=== PATIENT | male | born 1955 | race Caucasian/White ===

== ENCOUNTER 2022-09-27 11:58 | Observation (INO) | payer MEDICARE, MEDICAID, SELFPAY ==
[2022-09-27] VITALS (34 sets, daily range): BP systolic 138–182; BP diastolic 80–108; PULSE 91–110; RESP 13–18; TEMP 36.5–36.7; O2SAT 77–100; BMI 24.4
--- NOTE | 2022-09-27 13:19 | ECG_ITS ---
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 Measurements Intervals [place] Rate: 105 P: 56 MI: 167 QRS: 40 QRSD: 96 T: 58 QT: 336 QTc: 445 Interpretive Statements SINUS TACHYCARDIA ABNORMAL RHYTHM ECG INTERPRETATION BASED ON A DEFAULT AGE OF 40 YEARS No previous ECG available for comparison Electronically Signed On 09-27-2022 16:17:02 TOY ASSEMBLER WOOD by Basil Victor M.D. [id number]
[2022-09-27 13:27] LABS: Add Urine Microscopic? NO; Charge for UA Resulting for Rev
[2022-09-27 13:38] LABS: Urine Appearance Clear (CLEAR); Urine Color Yellow (Yellow)
[2022-09-27 13:39] LABS: Bilirubin Urine Neg (Negative); Blood Urine Neg (Negative); Glucose Urine UA Norm (Normal); Ketones Urine Negative (Negative); Leukocyte Esterase Urine Negative (Negative); Nitrate Urine Negative (Negative); Protein Urine Neg (Negative); Specific Gravity, Urine 1.015 (1.005-1.030); Sulfosalicylic Acid Urine Negative (Negative); Urobilinogen Urine Neg (Negative); pH Urine 8 (5-7)
[2022-09-27 14:31] LABS: Basophils % 0.5 %; Eosinophils # 0.1 10^3/uL (0.0-0.8); Eosinophils % 1.6 %; Hematocrit 40.5 % (42.0-52.0); Hemoglobin 12.8 g/dL (11.7-16.6); Lymphocytes # 1.3 10^3/uL (0.8-4.8); Lymphocytes % 16.1 %; Mean Corpuscular HGB Conc 31.6 g/dL (30.0-36.0); Mean Corpuscular Hemoglobin 27.2 pg (28.0-34.0); Mean Corpuscular Volume 86.2 fl (80-94); Mean Platelet Volume 9.5 fL (7.4-10.4); Monocytes # 0.6 10^3/uL (0.2-0.9); Monocytes % 6.6 %; Neutrophils # 6.18 10^3/uL (1.8-7.7); Neutrophils % 74.1 %; Nucleated Red Blood Cells % 0 %; Platelet Count 503 10^3/cmm (130-400); White Blood Count 8.3 10^3/uL (4.0-10.0)
[2022-09-27 14:53] LABS: Troponin(5th) Baseline 11 ng/L (0-15)
[2022-09-27 15:03] LABS: Alanine Aminotransferase 15 U/L (0-41); Albumin Level 3.5 g/dL (3.5-5.2); Alkaline Phosphatase 114 U/L (40-130); Anion Gap 16.1 (5-19); Aspartate Amino Transferase 18 U/L (0-40); Blood Urea Nitrogen 14 mg/dL (8-23); Calcium 10.1 mg/dL (8.5-10.5); Carbon Dioxide 27 mmol/L (22-29); Chloride 98 mmol/L (98-107); Globulin 4.3 g/dL (1.3-4.6); Glomerular Filtration Rate 112.5 mL/min (90-130); Glucose 103 mg/dL (65-115); NT Pro B Type Natriuretic Pept 69 pg/mL (0-125); Osmolality Calculated 285 mOsm/kg (285-295); Potassium 4.1 mmol/L (3.5-5.1); Sodium 137 mmol/L (136-145); Total Bilirubin 0.3 mg/dL (0.15-1.2); Total Protein 7.8 g/dL (6.6-8.7)
--- NOTE | 2022-09-27 15:19 | ECG_ITS ---
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 Measurements Intervals [place] Rate: 93 P: 45 TX: 176 QRS: 36 QRSD: 109 T: 21 QT: 357 QTc: 444 Interpretive Statements SINUS RHYTHM POSSIBLE INFERIOR MYOCARDIAL INFARCTION , PROBABLY OLD [30 ms Q WAVE IN II/aVF] Compared to ECG 09/27/2022 13:08:52 Myocardial infarct finding now present Sinus tachycardia no longer present Electronically Signed On 09-28-2022 10:17:21 HEAD WELL PULLER by Alberto Bacon M.D. [id number]
--- NOTE | 2022-09-27 16:57 | W.ED.CHESTPA ---
HPI - Chest Pain General: Chief Complaint: Chest Pain Stated Complaint: Swollen both legs Time Seen by Provider: 09/27/22 16:33 Source: patient Mode of arrival: EMS Limitations: no limitations History of Present Illness: See nursing assessment. Patient with complaints of increased peripheral edema in bilateral lower extremities for the past week and a half. Patient states that he has had increasing edema bilateral lower extremities to the point now that he cannot walk. He states he was seen in [facility] twice over the past week and a half. He states last visit was approximately 5 days ago and he was placed on Lasix 20 mg daily. He states he is taking Lasix 20 mg daily for the past 5 days. He states on the last visit he did have bilateral venous Dopplers of both lower extremities that were negative according to the patient. Patient states he is on no other medications except for the furosemide. He has not had any steroids. He states he was taken off written Christal for rheumatoid arthritis about 3 months ago due to cost. Past medical history includes rheumatoid arthritis, patient states he has arthritic changes right hip that will require right hip replacement sometime. He states he has been on crutches for approximately 1 year due to right hip pain. States he has had bilateral knee effusions with left effusion being drained approximately 1 month ago by his primary care doctor. He states the right knee was drained approximately 2 months ago. Patient states he does smoke cigarettes. He drinks 6 pack of beer per day. Denies any allergies to medications. Denies any fever. Denies any erythema or increased warmth to the lower extremities. Denies a history of gout. Patient denies any shortness of breath or chest pain. Associated symptoms: Deny abdominal pain, dyspnea, fever(s), nausea, palpitations or vomiting Review of Systems Const: Denies: fever(s) or chills Eyes: Denies: change in vision ENMT: Denies: throat pain Card: Denies: chest pain or palpitations Resp: Denies: dyspnea or wheezing GI: Denies: abdominal pain, nausea or vomiting : Denies: flank pain Musc: Reports: extremity swelling, joint pain and joint swelling; Denies: neck pain, back pain, joint warmth or muscle weakness Skin/Breast: Denies: rash or pruritus Neuro: Denies: headache(s) or numbness in extremities Psych: Denies: anxiety Clay/Lymph: Denies: enlarged lymph nodes [facility] ED PFSH: Medical History (Updated 09/27/22 @ 18:00 by Dillon Wood MD) RA (rheumatoid arthritis) Physical Exam Const: COMMON NORMALS: no acute distress, patient oriented x3, no limitations and well nourished GENERAL APPEARANCE: cooperative HENMT: COMMON NORMALS: normocephalic and atraumatic HEAD & SCALP: normocephalic and atraumatic FACE & SINUS: normal facial exam Eye: COMMON NORMALS: EOMs intact bilaterally Neck/C-Spine: COMMON NORMALS: full ROM, no lymphadenopathy, supple and no meningeal signs GENERAL: Yes normal visual inspection Lymph: LYMPHATIC: no lymphadenopathy noted Chest: COMMONS NORMALS: normal inspection of the chest and normal palpation of entire chest wall CHEST: No Ecchymosis present and No rash Resp: COMMON NORMALS: normal respiratory effort, No retractions and clear to auscultation bilaterally EFFORT & INSPECTION: No respiratory distress AUSCULTATION: clear to auscultation bilaterally Cardio: COMMON NORMALS: regular rate, regular rhythm and Peripheral pulses 2+ throughout JUGULAR VENOUS DISTENTION: no JVD RATE: regular rate RHYTHM: regular rhythm PERIPHERAL PULSES: Peripheral pulses 2+ throughout GI: COMMON NORMALS: Normal to inspection, nondistended, normoactive bowel sounds present and non-tender : COMMON NORMALS: Yes no CVA tenderness BLADDER/KIDNEY EXAM: Yes no CVA tenderness Back/Pelvis: COMMON NORMALS: no CVA tenderness Extremity: OTHER: Bilateral lower extremity peripheral edema 3+. Peripheral pulses are normal in the dorsalis pedis and posterior tibial pulses bilaterally. Peripheral edema extends above the knees bilaterally. No cellulitis. Capillary refill 2 to 3 seconds. Neuro: COMMON NORMALS: patient oriented x3, CN's II-XII intact bilaterally, no focal motor deficits and no sensory deficits noted MENINGEAL SIGNS: Yes no meningeal signs Psych: COMMON NORMALS: mental status grossly normal and Normal thought process present THOUGHT PROCESS: Normal thought process present Skin: COMMON NORMALS: no rashes or lesions noted and no wounds GENERAL SKIN EXAM: no rashes or lesions noted Course Vital Signs: Vital signs: Vital Signs Temperature 98.0 F 09/27/22 14:23 Pulse Rate 103 H 09/27/22 18:00 Respiratory Rate 13 09/27/22 17:15 Blood Pressure 179/105 09/27/22 18:00 Pulse Oximetry 95 09/27/22 17:55 Oxygen Delivery Me thod 09/27/22 14:23 MDM - Chest Pain Medical Decision Making Patient appears to have dependent peripheral edema bilaterally. Albumin level is on the low end of normal. This is likely lower due to his chronic alcohol use. Patient has had low-dose furosemide daily for the past 5 days. However, patient is at the point where he is unable to ambulate due to the peripheral edema severity. Will consult with hospitalist for possible observation. Discussed with hospitalist Dr. Wood. He agreed to observe the patient in the hospital due to the patient's inability to ambulate. Patient lives alone. We will start diuresis in the emergency room. 1838: still awaiting faxed material from [facility] in [place]. Request has been sent. Lab Data 09/27/22 14:24 09/27/22 14:24 Laboratory Results WBC 8.3 10^3/uL (4.0-10.0) 09/27/22 14:24 RBC 4.70 10^6/uL (4.1-5.3) 09/27/22 14:24 Hgb 12.8 g/dL (11.7-16.6) 09/27/22 14:24 Hct 40.5 % (42.0-52.0) L 09/27/22 14:24 MCV 86.2 fl (80-94) 09/27/22 14:24 MCH 27.2 pg (28.0-34.0) L 09/27/22 14:24 MCHC 31.6 g/dL (30.0-36.0) 09/27/22 14:24 RDW 16.0 % (12.1-15.1) H 09/27/22 14:24 Plt Count 503 10^3/cmm (130-400) H 09/27/22 14:24 MPV 9.5 fL (7.4-10.4) 09/27/22 14:24 Neut % (Auto) 74.1 % 09/27/22 14:24 Lymph % (Auto) 16.1 % 09/27/22 14:24 [place] % (Auto) 6.6 % 09/27/22 14:24 Eos % (Auto) 1.6 % 09/27/22 14:24 Baso % (Auto) 0.5 % 09/27/22 14:24 Neut # (Auto) 6.18 10^3/uL (1.8-7.7) 09/27/22 14:24 Lymph # (Auto) 1.3 10^3/uL (0.8-4.8) 09/27/22 14:24 [place] # (Auto) 0.6 10^3/uL (0.2-0.9) 09/27/22 14:24 Eos # (Auto) 0.1 10^3/uL (0.0-0.8) 09/27/22 14:24 Baso # (Auto) 0.0 10^3/uL (0.0-0.1) 09/27/22 14:24 Nucleated RBC % (auto) 0 % 09/27/22 14:24 Nucleated RBCs # 0.0 /100WBC 09/27/22 14:24 Sodium 137 mmol/L (136-145) 09/27/22 14:24 Potassium 4.1 mmol/L (3.5-5.1) 09/27/22 14:24 Chloride 98 mmol/L (98-107) 09/27/22 14:24 Carbon Dioxide 27 mmol/L (22-29) 09/27/22 14:24 Anion Gap 16.1 (5-19) 09/27/22 14:24 BUN 14 mg/dL (8-23) 09/27/22 14:24 Creatinine 0.7 mg/dL (0.7-1.2) 09/27/22 14:24 GFR Calculation 112.5 mL/min (90-130) 09/27/22 14:24 Glucose 103 mg/dL (65-115) 09/27/22 14:24 Calculated Osmolality 285 mOsm/kg (285-295) 09/27/22 14:24 Calcium 10.1 mg/dL (8.5-10.5) 09/27/22 14:24 Total Bilirubin 0.3 mg/dL (0.15-1.2) 09/27/22 14:24 AST 18 U/L (0-40) 09/27/22 14:24 ALT 15 U/L (0-41) 09/27/22 14:24 Alkaline Phosphatase 114 U/L (40-130) 09/27/22 14:24 Troponin T Baseline 11 ng/L (0-15) 09/27/22 14:24 Troponin T 120 Minute 11.33 ng/L (0-15) 09/27/22 16:28 Delta Troponin T 0.33 ABS# (0-10) 09/27/22 16:28 NT-Pro-B Natriuret Pep 69 pg/mL (0-125) 09/27/22 14:24 Total Protein 7.8 g/dL (6.6-8.7) 09/27/22 14:24 Albumin 3.5 g/dL (3.5-5.2) 09/27/22 14:24 Globulin 4.3 g/dL (1.3-4.6) 09/27/22 14:24 Urine Color Yellow (Yellow) 09/27/22 13:20 Urine Appearance Clear (CLEAR) 09/27/22 13:20 Urine pH 8 (5-7) H 09/27/22 13:20 Ur Specific [place] 1.015 (1.005-1.030) 09/27/22 13:20 Urine Protein Neg (Negative) 09/27/22 13:20 Urine Glucose (UA) Norm (Normal) 09/27/22 13:20 Urine Ketones Negative (Negative) 09/27/22 13:20 Urine Blood Neg (Negative) 09/27/22 13:20 Urine Nitrate Negative (Negative) 09/27/22 13:20 Urine Bilirubin Neg (Negative) 09/27/22 13:20 Prot Sulfosalicylic Acd Negative (Negative) 09/27/22 13:20 Urine Urobilinogen Neg mg/dL (Negative) 09/27/22 13:20 Ur Leukocyte Esterase Negative (Negative) 09/27/22 13:20 EKG Data EKG 1: I personally reviewed and interpreted this EKG as follows: EKG interpretation date: 09/27/22 EKG interpretation time: 16:39 Prior EKG tracings: not available for review Interpretation: EKG at 1308 showed sinus tachycardia with heart rate of 105, mild right atrial disease, normal axis. Normal AL interval, normal QT interval. Normal P waves, normal T waves. EKG 2: I personally reviewed and interpreted this EKG as follows: EKG interpretation date: 09/27/22 EKG interpretation time: 16:42 Prior EKG tracings: available for review Interpretation: EKG shows normal sinus rhythm with heart rate 93. Normal AL interval, normal QT interval, normal P wave, normal T waves. Normal axis. Normal EKG. Discharge Plan Discharge Patient Disposition: Placed in Observation Admit Provider: Dillon Wood Clinical Impression: Edema, peripheral Coding Level of Care Code ED Process Automation Engineer for Chg Fwd History Comprehensive Exam Comprehensive Medical Decision Making Moderate Complexity
[2022-09-27 17:02] LABS: Troponin 5 2HR 11.33 ng/L (0-15)
[2022-09-27] MEDS: FUROsemide 10 mg/mL SDV 4mL 40 MG IVP (17:26)
[2022-09-27 17:39] LABS: Troponin 5 2HR Delta 0.33 ABS# (0-10)
--- NOTE | 2022-09-27 18:47 | USR_ITS ---
PROCEDURE INFORMATION: Exam: US Duplex Lower Extremity Veins, Bilateral Exam date and time: 09/27/2022 7:44 PM Age: 66 years old Clinical indication: Edema, localized; Lower extremity, bilateral; Patient HX: History of chronic ble edema since lle dvt 2006. ; Additional info: Assess for dvt TECHNIQUE: Imaging protocol: Real-time Duplex ultrasound of the bilateral extremities with 2-D nelson scale, color Doppler flow and spectral waveform analysis with image documentation. Complete exam focused on the bilateral lower extremity veins. COMPARISON: No relevant prior studies available. FINDINGS: Right deep veins: Unremarkable. The common femoral, femoral, proximal profunda femoral and popliteal veins are patent without thrombus. Normal Doppler waveforms. Normal compressibility and/or augmentation response. Right superficial veins: Saphenofemoral junction is patent without thrombus. Left deep veins: Unremarkable. The common femoral, femoral, proximal profunda femoral and popliteal veins are patent without thrombus. Normal Doppler waveforms. Normal compressibility and/or augmentation response. Left superficial veins: Saphenofemoral junction is patent without thrombus. Soft tissues: Unremarkable. US/CV venous duplex [facility] [id number] IMPRESSION: No evidence of deep vein thrombosis.
--- NOTE | 2022-09-27 18:47 | USCV_ITS ---
Tatum Celestine Age: 66 Gender: M : 1955 Exam Date: 09/27/2022 19:15 Ordering Phys: Dillon Wood MD Technologist: JAXON Exam Location: [facility] [place] Indication: chronic BLE edema. History of DVT LLE 2006. No history of cardiac intervention per patient. BP: 179 / 94 HR: 92 Rhythm: Sinus Technical Quality: Adequate MEASUREMENTS (Male / Female) Normal Values 2D ECHO LV Diastolic Diameter PLAX 4.3 cm 4.2 - 5.9 / 3.9 - 5.3 cm LV Systolic Diameter PLAX 3.1 cm IVS Diastolic Thickness 1.6 cm 0.6 - 1.0 / 0.6 - 0.9 cm IVS Systolic Thickness 1.8 cm LVPW Diastolic Thickness 1.5 cm 0.6 - 1.0 / 0.6 - 0.9 cm LVPW Systolic Thickness 1.7 cm LVOT Diameter 2.1 cm LV Ejection Fraction 2D Teich 56.7 % LV Ejection Fraction MOD 2C 58.0 % LV Ejection Fraction 2C AL 58.5 % LA Diameter 4.2 cm LA Width 4.4 cm LA Height 5.6 cm RA Width 2.9 cm RA Height 4.6 cm Aorta at Sinotubular Diameter 3.6 cm IVC Diameter 2.0 cm M-MODE Aortic Annulus Diameter 3.6 cm LA Ao Ratio MM 1.1 MV E Point Septal Separation 0.9 cm DOPPLER AV Peak Velocity 143.0 cm/s LVOT Peak Velocity 86.0 cm/s AV Area Cont Eq vti 1.8 cm squared AV Area Cont Eq pk 2.1 cm squared MV Peak Velocity 150.0 cm/s MV Area PHT 2.9 cm squared Mitral E to A Ratio 0.6 MV E' Velocity 43.0 cm/s Mitral E to MV E' Ratio 17.0 Mitral E to LV E' Lateral Ratio 16.3 Mitral E to LV E' Septal Ratio 18.1 TV Peak E Velocity 49.0 cm/s PV Peak Velocity 88.0 cm/s RV Acceleration Time 0.1 s RV Ejection Time 0.3 s RV AcT/ET 0.2 FINDINGS Left Ventricle Left ventricle is normal in size. LV systolic function is normal with EF of 55 to 60%. No regional wall motion abnormalities are seen. Grade 1 diastolic dysfunction Right Ventricle Normal in size and function Right Atrium Normal in size Left Atrium Normal in size Mitral Valve Moderate mitral annular calcification is seen. Trace mitral regurgitation Aortic Valve Aortic valve is thickened. Mild aortic regurgitation.No significant stenosis. Tricuspid Valve Mild tricuspid regurgitation. Insufficient TR jet to calculate RVSP Pulmonic Valve Trace pulmonic regurgitation. Pericardium Normal Aorta Normal in size IVC Not well visualized CONCLUSIONS LV systolic function is normal with EF 55 to 60%. Grade 1 diastolic dysfunction Moderate mitral annular calcification is seen. Mild aortic regurgitation Mild tricuspid regurgitation Trace pulmonic regurgitation No comparison studies are available Alberto Bacon MD (Electronically Signed) Final Date: 28 September 2022 10:47 S
--- NOTE | 2022-09-27 18:47 | PC.NURSE ---
report callec to tia bales
[2022-09-27] MEDS: ondansetron 2 mg/ML SDV 2 mL 4 MG IVP (18:54)
[2022-09-27] MEDS: acetaminophen 325 mg Tablet 650 MG PO (18:54)
[2022-09-27] MEDS: HYDROcodone-acetaminophen 5-325 mg Tablet 1 TAB PO (18:54)
--- NOTE | 2022-09-27 19:06 | P.HP_ITS ---
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 He states that he will actually get upset and did not return for any additional treatments. In the past he was also on Rinvoq which she states was discontinued after his insurance declined payment for it. He has not been on any additional treatments. A month ago states that fluid was withdrawn from his left knee by orthopedic nurse practitioner. He states that over the last several months his condition has declined in terms of mobility. Previously used to be able to get around sometimes using crutches. He tells me he has a very bad hip on the right side and that he had previously seen someone with consideration of hip replacement at 1 point [facility] still anticipates that he will get hip replacement. 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 Over the last week and a half his condition had continued to decline, and he states has also been having progressively worse bilateral lower extremity edema. This reportedly had been previously imaged not found to have DVT. He states that currently he is to the point that he is unable to get up by himself. He is to also get some assistance from a nephew who was coming to his house, however, his nephew recently had some health issues and the surgical procedure and currently needs help himself. He states otherwise he also gets easily dyspneic with exertion which is not new. He is not sure whether he gets orthopnea as he is unable to lie down due to pain in his back. He denies any chest pain or pressure. He has not been having any cough. He is not short of breath at rest. In ER he is afebrile, heart rate in the 90s. No leukocytosis. Mildly elevated platelet counts and RDW, otherwise unremarkable CBC. Unremarkable CMP and urinalysis. Troponin not elevated. NT proBNP 69. Unremarkable EKG although noted Q waves inferiorly. He is accompanied in ER by his niece. In terms of CODE STATUS, he would be okay for intubation in case of isolated respiratory failure or arrest on transient basis, but in case of cardiopulmonary arrest he would rather be kept comfortable and let go if it did happen. Review of Systems Const: Denies: fever(s), chills, body aches or malaise Eyes: Denies: change in vision, eye discomfort or eye redness ENMT: Denies: throat pain, oral sores or ear or mastoid pain Card: Reports: edema, swelling of feet/ankles and dyspnea on exertion; Denies: chest pain or pre-syncope Resp: Denies: dyspnea, productive cough, change in phlegm color or hemoptysis GI: Denies: abdominal pain, nausea, vomiting, diarrhea, constipation, h ematochezia or melena : Denies: flank pain, difficulty urinating, urinary frequency or hematuria Musc: Reports: extremity swelling (BL LE), joint swelling (Multiple joins with RA), joint stiffness, limited range of motion and deformity (hands, knees, feet); Denies: joint redness Skin/Breast: Denies: rash or new lesions Neuro: Denies: headache(s), numbness in extremities, dizziness, confusion or seizure-like activity Endo: Denies: polyuria or polydipsia Clay/Lymph: Denies: easy bleeding or tender lymph nodes All/Imm: Denies: urticaria or tongue swelling Medications/Allergies Home Medications Medication Instructions Recorded Confirmed Last Taken Type furosemide 20 mg tablet 20 mg PO DAILY 09/27/22 09/27/22 09/26/22 History Allergies Allergy/AdvReac Type Severity Reaction Status Date / Time No Known Allergies Allergy Verified 09/27/22 16:37 PFSH Acute PFSH: Medical History CVA (cerebral vascular accident) Excessive consumption of ethanol RA (rheumatoid arthritis) Smoking Surgical History No pertinent past surgical history Social History Smoking and tobacco status: current every day smoker Alcohol intake: current Alcohol intake frequency: 3 or more drinks per day Alcohol type: beer Alcohol use comment: 6-pack a day Substance/Drug Use: never Lives independently: Yes Household members: none 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 Vitals/I&O/Wt Last Vital Signs Temp 98.0 F 09/27/22 14:23 Pulse 98 09/27/22 18:45 Resp 13 09/27/22 17:15 BP 179/94 09/27/22 18:45 Pulse Ox 97 09/27/22 18:45 O2 Del Method 09/27/22 14:23 Weight last 48 hrs Weight 81.647 kg Physical Exam Narrative: Niece at bedside Const: COMMON NORMALS: patient oriented x3 and alert GENERAL APPEARANCE: cooperative ORIENTATION/CONSCIOUSNESS: Yes awake HENMT: COMMON NORMALS: oropharynx normal Neck/C-Spine: COMMON NORMALS: no JVD Resp: COMMON NORMALS: normal respiratory effort and clear to auscultation bilaterally AUSCULTATION: clear to auscultation bilaterally Cardio: COMMON NORMALS: no JVD, regular rhythm, S1 normal heart sound present, S2 normal heart sound present and No murmurs present (Cardio) RHYTHM: regular rhythm HEART SOUNDS: S1 normal heart sound present and S2 normal heart sound present GI: COMMON NORMALS: Normal to inspection, nondistended, normoactive bowel sounds present, Soft to palpation and non-tender PALPATION: Yes Soft to palpation Extremity: COMMON NORMALS: no joint enlargement GENERAL: Yes edema (BL legs 3+ edema up to thighs) OTHER: Multiple joint bilateral RA deformities Neuro: COMMON NORMALS: patient oriented x3 and moves all extremities SENSORIUM/ORIENTATION: Yes alert OTHER: Weakness R side Skin: COMMON NORMALS: no rashes or lesions noted GENERAL SKIN EXAM: no rashes or lesions noted Data 09/27/22 14:24 09/27/22 14:24 A&P Assessment and plan (1) Unable to ambulate: Unable to ambulate with progressive bilateral lower extremity edema. Does report dyspnea on exertion. BNP is not elevated, however, EKG noted inferior Q waves. Will assess PE. Assess lower extremity duplex. Will request PT assessment as well service for compression wraps. OT. Continue low-dose Lasix. He does have untreated RA, and discussed also with him and his niece that he would benefit from initiating treatment JALEN. He has been reluctant going to rheumatology as not believe that pills could fix his problem, and he was upset previously about not having his knee drained,, states he understands how that may have been wrong, and how currently his condition has progressed without treatment. He states that he will follow-up with rheumatology in [place] as it is closer to his home. Assess TSH. Magnesium. Will request case management assessment consultation as he would benefit from rehabilitation at [facility] especially currently he cannot get up on his own, lives alone. (2) Bilateral leg edema: As above. (3) Excessive consumption of ethanol: Continue sixpack of beer per day. Discussed with him concerns of excessive alcohol consumption. Risks. Encouraged him to decrease consumption. Monitor for withdrawal. Thiamine, folic acid, vitamin. (4) Smoking: With him smoking cessation for 4 minutes. He states that he intends to quit. Nicotine patch, nicotine lozenges. (5) RA (rheumatoid arthritis): He does have untreated RA, and discussed also with him and his niece that he would benefit from initiating treatment JALEN. He has been reluctant going to rheumatology as not believe that pills could fix his problem, and he was upset previously about not having his knee drained,, states he understands how that may have been wrong, and how currently his condition has progressed without treatment. He states that he will follow-up with rheumatology in [place] as it is closer to his home. Plan HTN: Cardiac diet. Monitor blood pressure. Lasix. History of CVA: Would benefit from aspirin, statin. Smoking cessation. Optimization of blood pressure. Should also follow-up with PCP for regular health maintenance. Attestations Medical Necessity Statement*: Place in observation due to progressive lower extremity edema, inability to get up or ambulate, living alone. Coding Level of Care Code Acute Parcel Post Weigher for Chg Fwd Diagnoses Unable to ambulate R26.2 Bilateral leg edema R60.0 Excessive consumption of ethanol F10.10 Smoking F17.200 RA (rheumatoid arthritis) M06.9
[2022-09-27 20:55] LABS: Troponin 5 6HR 14.46 ng/L (0-15)
[2022-09-27 21:05] LABS: Magnesium 1.9 mg/dL (1.7-2.3); Thyroid Stimulating Hormone 2.56 uIU/mL (0.27-4.20); Troponin 5 6HR Delta 3.46 ng/L (0-12)
[2022-09-27] MEDS: nicotine 21 mg Patch 1 PATCH TRANSDERMA (21:16)
--- NOTE | 2022-09-27 22:42 | PC.NURSE ---
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
[2022-09-28] VITALS (7 sets, daily range): BP systolic 111–143; BP diastolic 63–75; PULSE 76–93; RESP 16–18; TEMP 36.5–36.8; O2SAT 91–96
[2022-09-28] MEDS: HYDROcodone-acetaminophen 5-325 mg Tablet 1 TAB PO ×3 (01:57→20:25)
[2022-09-28] MEDS: multivitamin therapeutic Tablet 1 TAB PO (08:40)
[2022-09-28] MEDS: FUROsemide 20 mg Tablet PO (08:40)
[2022-09-28] MEDS: aspirin 81 mg EC Tablet PO (08:40)
[2022-09-28] MEDS: folic acid 1 mg Tablet PO (08:41)
[2022-09-28] MEDS: atorvastatin 40 mg Tablet PO (08:41)
[2022-09-28] MEDS: thiamine 100 mg Tablet PO (08:41)
--- NOTE | 2022-09-28 10:29 | PC.CHAP ---
Pastoral Care Encounter/Spiritual Assessment Type of Contact [] Declined vector control specialist visit [] Patient/Family/Request visit [] Outpatient visit [] Follow-up visit [] Physician referral [] Code/Alert [x] Routine visit [] Staff referral [] Actively dying [] Patient sleeping [] Family support [] [] Out of room [] Palliative care [] [x] Receiving care in room [] Pre-surgical visit [] Trauma [x] Long length of stay [] ICU visit [] Other: Relational/Emotional Strength [] Patient feels connected with others/family/visitors/staff [x] Distress [] Loneliness/isolation [] Abandonment Spirituality of Patient [x] Person of [place] [] Attends [employer] of their [place] [] Believes in Prayer [] Reads Bible or Hinduism materials [] There are Spiritual issues to be addressed Lapeler Interventions [x] Prayer [x] Active listening [x] Non-anxious presence [x] Spiritual/emotional support [] Crisis/trauma care [x] Spiritual counseling [] Bereavement support [] Provided bereavement packet [] Provided Bible/devotional materials [] Provided toy/stuffed animal, coloring book to patient or family member [] Provided Communion [] Anointing/[place] [] Salvation [x] Completed spiritual assessment [] Other: Impact on Illness or Injury [] Angry [x] Fearful [] Anxious [] Often cries [] Exhaustion [x] Unable to work [] Unable to attend rastafari [] Unable to walk/stand [] Unable to read [] Unable to drive [] Unable to eat/drink [] Unable to sleep [] Unable to be with family [] Patient intubated [] Other: Summary unable to communicate about his health [facility] doctors respons not sure when he well be able to go home Time spent with patient 10 mins
--- NOTE | 2022-09-28 12:20 | PM.PN ---
Subjective Subjective: His lower extremities were wrapped with compression wraps. He was bothered by pain in his right hip making it difficult for him to sleep. He has had harder time readjusting his position with the significant swelling of his legs. He denies chest pain or pressure. Vitals/I&O/Wt Last Vital Signs Temp 98.1 F 09/28/22 11:32 Pulse 85 09/28/22 11:32 Resp 16 09/28/22 11:32 BP 133/75 09/28/22 11:32 Pulse Ox 95 09/28/22 11:32 O2 Del Method 09/28/22 11:32 09/27/22 09/28/22 09/28/22 22:59 06:59 14:59 Intake Total 960 / 960 360 / 360 Output Total 725 / 725 Balance 235 / 235 360 / 360 Weight last 48 hrs Weight 81.647 kg Physical Exam Const: COMMON NORMALS: patient oriented x3 and alert GENERAL APPEARANCE: cooperative ORIENTATION/CONSCIOUSNESS: Yes awake HENMT: COMMON NORMALS: oropharynx normal Neck/C-Spine: COMMON NORMALS: no JVD Resp: COMMON NORMALS: normal respiratory effort and clear to auscultation bilaterally AUSCULTATION: clear to auscultation bilaterally Cardio: COMMON NORMALS: no JVD, regular rhythm, S1 normal heart sound present, S2 normal heart sound present and No murmurs present (Cardio) RHYTHM: regular rhythm HEART SOUNDS: S1 normal heart sound present and S2 normal heart sound present GI: COMMON NORMALS: Normal to inspection, nondistended, normoactive bowel sounds present, Soft to palpation and non-tender PALPATION: Yes Soft to palpation Extremity: COMMON NORMALS: no joint enlargement GENERAL: Yes edema (BL legs 3+ edema up to thighs) OTHER: Compression wraps on BL LE. Neuro: COMMON NORMALS: patient oriented x3 and moves all extremities SENSORIUM/ORIENTATION: Yes alert OTHER: Weakness R side Skin: COMMON NORMALS: no rashes or lesions noted GENERAL SKIN EXAM: no rashes or lesions noted Data 09/27/22 14:24 09/27/22 14:24 A&P Assessment and plan (1) Unable to ambulate: Compression wraps applied to lower extremities. Continue low-dose Lasix. Duplex without DVT. TTE obtained, appears to show normal ejection fraction, grade 1 diastolic dysfunction. Mild AVR. Mild TVR. Trace PVR. Was seen by therapy. Case management working with him with regards to custodial placement. Needs to also follow-up with rheumatology. Normal TSH and magnesium. (2) Bilateral leg edema: As above. (3) Excessive consumption of ethanol: Monitor for withdrawal. Continue sixpack of beer per day. Discussed with him concerns of excessive alcohol consumption. Risks. Encouraged him to decrease consumption. Ativan per [facility] protocol for withdrawal. Thiamine, folic acid, vitamin. (4) Smoking: Continue to encourage cessation. Nicotine patch, nicotine lozenges. (5) RA (rheumatoid arthritis): He does have untreated RA, and discussed also with him and his niece that he would benefit from initiating treatment JALEN. He has been reluctant going to rheumatology as not believe that pills could fix his problem, and he was upset previously about not having his knee drained,, states he understands how that may have been wrong, and how currently his condition has progressed without treatment. He states that he will follow-up with rheumatology in [place] as it is closer to his home. Plan HTN: Cardiac diet. Monitor blood pressure. Lasix. History of CVA: Would benefit from aspirin, statin. Smoking cessation. Optimization of blood pressure. Should also follow-up with PCP for regular health maintenance. Attestations Medical Necessity Statement*: Continue hospitalization for assessment and management of inability to ambulate in a gentleman without available support at home. 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
[2022-09-28] MEDS: lidocaine 5% Patch 1 PATCH TOPICAL (12:46)
[2022-09-28] MEDS: enoxaparin 40 mg/0.4 mL Syringe SUBCUT (16:48)
[2022-09-28] MEDS: nicotine 21 mg Patch 1 PATCH TRANSDERMA (20:25)
[2022-09-29] VITALS: BP 129/73; PULSE 82; RESP 21; TEMP 37.1; O2SAT 91
[2022-09-29 04:00] VITALS: BP 126/68; PULSE 102; RESP 16; TEMP 36.7; O2SAT 99
[2022-09-29] MEDS: FUROsemide 20 mg Tablet PO (07:48)
[2022-09-29] MEDS: aspirin 81 mg EC Tablet PO (07:49)
[2022-09-29] MEDS: multivitamin therapeutic Tablet 1 TAB PO (07:49)
[2022-09-29] MEDS: atorvastatin 40 mg Tablet PO (07:49)
[2022-09-29] MEDS: folic acid 1 mg Tablet PO (07:49)
[2022-09-29] MEDS: thiamine 100 mg Tablet PO (07:49)
[2022-09-29] MEDS: lidocaine 5% Patch 1 PATCH TOPICAL (07:50)
[2022-09-29] MEDS: HYDROcodone-acetaminophen 5-325 mg Tablet 1 TAB PO ×2 (07:53→16:09)
[2022-09-29 07:58] VITALS: BP 158/84; PULSE 82; RESP 18; TEMP 37; O2SAT 94
[2022-09-29 11:42] VITALS: BP 137/74; PULSE 86; RESP 18; TEMP 36.6; O2SAT 94
[2022-09-29 16:00] VITALS: BP 142/72; PULSE 89; RESP 18; TEMP 37.1; O2SAT 95
[2022-09-29] MEDS: enoxaparin 40 mg/0.4 mL Syringe SUBCUT (16:05)
--- NOTE | 2022-09-29 19:42 | PM.PN ---
Subjective Subjective: He was again hurting in his hip despite being lidocaine patch. Having pain in multiple joints bilaterally. Edema showing improvement with compression dressings. Vitals/I&O/Wt Last Vital Signs Temp 98.8 F 09/29/22 16:00 Pulse 89 09/29/22 16:00 Resp 18 09/29/22 16:00 BP 142/72 09/29/22 16:00 Pulse Ox 95 09/29/22 16:00 O2 Del Method 09/29/22 16:00 09/29/22 09/29/22 09/29/22 06:59 14:59 22:59 Intake Total 960 / 2040 840 / 840 480 / 1320 Output Total 1000 / 2650 550 / 550 Balance -40 / -610 840 / 840 -70 / 770 Physical Exam Const: COMMON NORMALS: patient oriented x3 and alert GENERAL APPEARANCE: cooperative ORIENTATION/CONSCIOUSNESS: Yes awake HENMT: COMMON NORMALS: oropharynx normal Neck/C-Spine: COMMON NORMALS: no JVD Resp: COMMON NORMALS: normal respiratory effort and clear to auscultation bilaterally AUSCULTATION: clear to auscultation bilaterally Cardio: COMMON NORMALS: no JVD, regular rhythm, S1 normal heart sound present, S2 normal heart sound present and No murmurs present (Cardio) RHYTHM: regular rhythm HEART SOUNDS: S1 normal heart sound present and S2 normal heart sound present GI: COMMON NORMALS: Normal to inspection, nondistended, normoactive bowel sounds present, Soft to palpation and non-tender PALPATION: Yes Soft to palpation Extremity: COMMON NORMALS: no joint enlargement GENERAL: Yes edema (BL legs 3+ edema up to thighs) OTHER: Compression wraps on BL LE. Neuro: COMMON NORMALS: patient oriented x3 and moves all extremities SENSORIUM/ORIENTATION: Yes alert OTHER: Weakness R side Skin: COMMON NORMALS: no rashes or lesions noted GENERAL SKIN EXAM: no rashes or lesions noted Data 09/27/22 14:24 09/27/22 14:24 A&P Assessment and plan (1) Unable to ambulate: With polyarticular RA, painful joints, will need DMARD, however, for short-term we will start scheduled NSAID for relief with ibuprofen 600 mg 3 times daily. Consider additional steroids depending on symptoms. Needs to follow-up with rheumatology. Compression dressings for lower extremities helping with edema. Continue low-dose Lasix. Duplex without DVT. TTE obtained, appears to show normal ejection fraction, grade 1 diastolic dysfunction. Mild AVR. Mild TVR. Trace PVR. Normal TSH and magnesium. Arrangements for further rehabilitation after discharge. (2) Bilateral leg edema: TTE with normal EF, grade 1 diastolic dysfunction. He does not otherwise appear orthopneic, no JVD, does not appear to be in CHF. No DVT on duplex Would suspect venous insufficiency, follow-up outpatient with reflux study, follow-up with vascular surgery. (3) Excessive consumption of ethanol: Monitor for withdrawal. Continue sixpack of beer per day. Discussed with him concerns of excessive alcohol consumption. Risks. Encouraged him to decrease consumption. Ativan per [facility] protocol for withdrawal. Thiamine, folic acid, vitamin. (4) Smoking: Continue to encourage cessation. Nicotine patch, nicotine lozenges. (5) RA (rheumatoid arthritis): He does have untreated RA, and discussed also with him and his niece that he would benefit from initiating treatment JALEN. He has been reluctant going to rheumatology as not believe that pills could fix his problem, and he was upset previously about not having his knee drained,, states he understands how that may have been wrong, and how currently his condition has progressed without treatment. He states that he will follow-up with rheumatology in [place] as it is closer to his home. For now start NSAID course for symptomatic relief. Plan HTN: Cardiac diet. Monitor blood pressure. Lasix. History of CVA: Would benefit from aspirin, statin. Smoking cessation. Optimization of blood pressure. Should also follow-up with PCP for regular health maintenance. Attestations Medical Necessity Statement*: Continue hospitalization for assessment and management of inability to ambulate and gentleman with lower extremity edema, untreated RA, at risk of alcohol withdrawal. Post discharge planning. Coding Level of Care Code Acute Police Detention Attendant for Chg Fwd Diagnoses Unable to ambulate R26.2 Bilateral leg edema R60.0 Excessive consumption of ethanol F10.10 Smoking F17.200 RA (rheumatoid arthritis) M06.9
[2022-09-29 20:00] VITALS: BP 126/66; PULSE 94; RESP 19; TEMP 37.2; O2SAT 94
[2022-09-29] MEDS: ibuprofen 600 mg Tablet PO (20:50)
[2022-09-29] MEDS: nicotine 21 mg Patch 1 PATCH TRANSDERMA (20:51)
[2022-09-30] VITALS: BP 147/82; PULSE 94; RESP 19; TEMP 36.7; O2SAT 95
[2022-09-30] MEDS: HYDROcodone-acetaminophen 5-325 mg Tablet 1 TAB PO ×4 (00:59→20:34)
[2022-09-30 04:00] VITALS: BP 143/82; PULSE 80; RESP 18; TEMP 36.9; O2SAT 92
[2022-09-30 07:58] VITALS: BP 148/85; PULSE 84; RESP 18; TEMP 36.7; O2SAT 94
--- NOTE | 2022-09-30 08:06 | PC.SOCIAL ---
IMM not updated as patient is in obs.
[2022-09-30] MEDS: ibuprofen 600 mg Tablet PO ×3 (08:51→20:34)
[2022-09-30] MEDS: aspirin 81 mg EC Tablet PO (08:52)
[2022-09-30] MEDS: multivitamin therapeutic Tablet 1 TAB PO (08:52)
[2022-09-30] MEDS: folic acid 1 mg Tablet PO (08:52)
[2022-09-30] MEDS: atorvastatin 40 mg Tablet PO (08:52)
[2022-09-30] MEDS: FUROsemide 20 mg Tablet PO (08:52)
[2022-09-30] MEDS: thiamine 100 mg Tablet PO (08:52)
[2022-09-30] MEDS: lidocaine 5% Patch 1 PATCH TOPICAL (09:32)
[2022-09-30 12:00] VITALS: BP 118/74; PULSE 86; RESP 18; TEMP 36.6; O2SAT 94
[2022-09-30 16:00] VITALS: BP 133/72; PULSE 87; RESP 18; TEMP 36.9; O2SAT 97
[2022-09-30] MEDS: enoxaparin 40 mg/0.4 mL Syringe SUBCUT (16:41)
[2022-09-30 20:00] VITALS: BP 127/67; PULSE 88; RESP 17; TEMP 36.6; O2SAT 97
[2022-09-30] MEDS: nicotine 21 mg Patch 1 PATCH TRANSDERMA (20:33)
--- NOTE | 2022-09-30 20:41 | P.PN_ITS ---
Subjective Subjective: Today he feels slightly better. Slightly less pain in multiple joints. Edema with improvement. Vitals/I&O/Wt Last Vital Signs Temp 98.5 F 09/30/22 16:00 Pulse 87 09/30/22 16:00 Resp 18 09/30/22 16:00 BP 133/72 09/30/22 16:00 Pulse Ox 97 09/30/22 16:00 O2 Del Method 09/30/22 16:00 09/30/22 09/30/22 09/30/22 06:59 14:59 22:59 Intake Total 1360 / 3160 600 / 600 480 / 1080 Output Total 2200 / 3400 600 / 600 Balance -840 / -240 600 / 600 -120 / 480 Physical Exam Const: COMMON NORMALS: patient oriented x3 and alert GENERAL APPEARANCE: cooperative ORIENTATION/CONSCIOUSNESS: Yes awake HENMT: COMMON NORMALS: oropharynx normal Neck/C-Spine: COMMON NORMALS: no JVD Resp: COMMON NORMALS: normal respiratory effort and clear to auscultation bilaterally AUSCULTATION: clear to auscultation bilaterally Cardio: COMMON NORMALS: no JVD, regular rhythm, S1 normal heart sound present, S2 normal heart sound present and No murmurs present (Cardio) RHYTHM: regular rhythm HEART SOUNDS: S1 normal heart sound present and S2 normal heart sound present GI: COMMON NORMALS: Normal to inspection, nondistended, normoactive bowel sounds present, Soft to palpation and non-tender PALPATION: Yes Soft to palpation Extremity: COMMON NORMALS: no joint enlargement GENERAL: Yes edema (BL legs 3+ edema up to thighs) OTHER: Compression wraps on BL LE. Neuro: COMMON NORMALS: patient oriented x3 and moves all extremities SENSOR IUM/ORIENTATION: Yes alert OTHER: Weakness R side Skin: COMMON NORMALS: no rashes or lesions noted GENERAL SKIN EXAM: no rashes or lesions noted Data 09/27/22 14:24 09/27/22 14:24 A&P Assessment and plan (1) Unable to ambulate: Today with slight improvement in symptoms after initiation of NSAID. Continue short course of NSAIDs. Continue mobilization with therapy. Continue arrangements for SNF. Needs to follow-up with rheumatology soon as he may be set up with DMARD. Compression dressings for lower extremities helping with edema. Continue low-dose Lasix. Duplex without DVT. TTE obtained, appears to show normal ejection fraction, grade 1 diastolic dysfunction. Mild AVR. Mild TVR. Trace PVR. Normal TSH and magnesium. Arrangements for further rehabilitation after discharge. (2) Bilateral leg edema: TTE with normal EF, grade 1 diastolic dysfunction. He does not otherwise appear orthopneic, no JVD, does not appear to be in CHF. No DVT on duplex Would suspect venous insufficiency, follow-up outpatient with reflux study, follow-up with vascular surgery. (3) Excessive consumption of ethanol: Monitor for withdrawal. Continue sixpack of beer per day. Discussed with him concerns of excessive alcohol consumption. Risks. Encouraged him to decrease consumption. Ativan per [facility] protocol for withdrawal. Thiamine, folic acid, vitamin. (4) Smoking: Continue to encourage cessation. Nicotine patch, nicotine lozenges. (5) RA (rheumatoid arthritis): He does have untreated RA, and discussed also with him and his niece that he would benefit from initiating treatment JALEN. He has been reluctant going to rheumatology as not believe that pills could fix his problem, and he was upset previously about not having his knee drained,, states he understands how that may have been wrong, and how currently his condition has progressed without treatment. He states that he will follow-up with rheumatology in [place] as it is closer to his home. For now start NSAID course for symptomatic relief. Plan HTN: Cardiac diet. Monitor blood pressure. Lasix. History of CVA: Would benefit from aspirin, statin. Smoking cessation. Optimization of blood pressure. Should also follow-up with PCP for regular health maintenance. Attestations Medical Necessity Statement*: Continue hospitalization for management of inability to ambulate with lower extremity edema, ventricular rate, polyarticular pain, pending arrangements for rehabilitation. 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
[2022-10-01] VITALS: BP 132/79; PULSE 89; RESP 17; TEMP 36.6; O2SAT 96
[2022-10-01] MEDS: HYDROcodone-acetaminophen 5-325 mg Tablet 1 TAB PO ×4 (00:24→21:08)
[2022-10-01 04:00] VITALS: BP 130/80; PULSE 87; RESP 17; TEMP 36.5; O2SAT 93
[2022-10-01 08:00] VITALS: BP 125/78; PULSE 88; RESP 15; TEMP 36.8; O2SAT 96
[2022-10-01] MEDS: FUROsemide 20 mg Tablet PO (09:20)
[2022-10-01] MEDS: thiamine 100 mg Tablet PO (09:20)
[2022-10-01] MEDS: aspirin 81 mg EC Tablet PO (09:20)
[2022-10-01] MEDS: ibuprofen 600 mg Tablet PO ×3 (09:20→20:35)
[2022-10-01] MEDS: folic acid 1 mg Tablet PO (09:20)
[2022-10-01] MEDS: multivitamin therapeutic Tablet 1 TAB PO (09:21)
[2022-10-01] MEDS: atorvastatin 40 mg Tablet PO (09:21)
[2022-10-01] MEDS: lidocaine 5% Patch 1 PATCH TOPICAL (09:21)
[2022-10-01 12:00] VITALS: BP 111/68; PULSE 86; RESP 15; TEMP 36.8; O2SAT 96
[2022-10-01 16:00] VITALS: BP 132/68; PULSE 87; RESP 15; TEMP 36.7; O2SAT 95
[2022-10-01] MEDS: enoxaparin 40 mg/0.4 mL Syringe SUBCUT (18:01)
[2022-10-01 20:00] VITALS: BP 139/80; PULSE 83; RESP 20; TEMP 36.7; O2SAT 97
[2022-10-01] MEDS: nicotine 21 mg Patch 1 PATCH TRANSDERMA (20:36)
--- NOTE | 2022-10-01 20:49 | P.PN_ITS ---
Subjective Subjective: He overall feels some improvement in diffuse joint pains with the temporary NSAID course. We will attempt to mobilize with PT today again. No chest pain or shortness of breath. Vitals/I&O/Wt Last Vital Signs Temp 98.1 F 10/01/22 20:00 Pulse 83 10/01/22 20:00 Resp 20 H 10/01/22 20:00 BP 139/80 10/01/22 20:00 Pulse Ox 97 10/01/22 20:00 O2 Del Method 10/01/22 20:00 10/01/22 10/01/22 10/01/22 06:59 14:59 22:59 Intake Total 240 / 1560 120 / 120 240 / 360 Output Total 650 / 1450 675 / 675 400 / 1075 Balance -410 / 110 -555 / -555 -160 / -715 Physical Exam Narrative: Niece at bedside Const: COMMON NORMALS: patient oriented x3 and alert GENERAL APPEARANCE: co operative ORIENTATION/CONSCIOUSNESS: Yes awake HENMT: COMMON NORMALS: oropharynx normal Neck/C-Spine: COMMON NORMALS: no JVD Resp: COMMON NORMALS: normal respiratory effort and clear to auscultation bilaterally AUSCULTATION: clear to auscultation bilaterally Cardio: COMMON NORMALS: no JVD, regular rhythm, S1 normal heart sound present, S2 normal heart sound present and No murmurs present (Cardio) RHYTHM: regular rhythm HEART SOUNDS: S1 normal heart sound present and S2 normal heart sound present GI: COMMON NORMALS: Normal to inspection, nondistended, normoactive bowel sounds present, Soft to palpation and non-tender PALPATION: Yes Soft to palpation Extremity: COMMON NORMALS: no joint enlargement GENERAL: Yes edema (BL legs 3+ edema up to thighs) OTHER: Compression wraps on BL LE. Neuro: COMMON NORMALS: patient oriented x3 and moves all extremities SENSORIUM/ORIENTATION: Yes alert OTHER: Weakness R side Skin: COMMON NORMALS: no rashes or lesions noted GENERAL SKIN EXAM: no rashes or lesions noted Data 09/27/22 14:24 09/27/22 14:24 A&P Assessment and plan (1) Unable to ambulate: Today with slight improvement in symptoms after initiation of NSAID. Continue short course of NSAIDs. Continue mobilization with therapy. Continue arrangements for SNF. Needs to follow-up with rheumatology soon as he may be set up with DMARD. Will check BMP in the morning. Compression dressings for lower extremities helping with edema. Continue low-dose Lasix. Duplex without DVT. TTE obtained, appears to show normal ejection fraction, grade 1 diastolic dysfunction. Mild AVR. Mild TVR. Trace PVR. Normal TSH and magnesium. Arrangements for further rehabilitation after discharge. (2) Bilateral leg edema: TTE with normal EF, grade 1 diastolic dysfunction. He does not otherwise appear orthopneic, no JVD, does not appear to be in CHF. No DVT on duplex Suspect severe venous insufficiency, follow-up outpatient with reflux study, follow-up with vascular surgery. (3) Excessive consumption of ethanol: Monitor for withdrawal. Continue sixpack of beer per day. Discussed with him concerns of excessive alcohol consumption. Risks. Encouraged him to decrease consumption. Ativan per [facility] protocol for withdrawal. Thiamine, folic acid, vitamin. (4) Smoking: Continue to encourage cessation. Nicotine patch, nicotine lozenges. (5) RA (rheumatoid arthritis): He does have untreated RA, and discussed also with him and his niece that he would benefit from initiating treatment JALEN. He has been reluctant going to rheumatology as not believe that pills could fix his problem, and he was upset previously about not having his knee drained,, states he understands how that may have been wrong, and how currently his condition has progressed without treatment. He states that he will follow-up with rheumatology in [place] as it is closer to his home. For now start NSAID course for symptomatic relief. Plan HTN: Cardiac diet. Monitor blood pressure. Lasix. History of CVA: Would benefit from aspirin, statin. Smoking cessation. Opti mization of blood pressure. Should also follow-up with PCP for regular health maintenance. Attestations Medical Necessity Statement*: Continue hospitalization due to inability ambulate, lack of support at home, mobilization PT, arrangements for rehabilitation, lower extremity compression and follow-up with rheumatology for untreated rheumatoid arthritis. 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
[2022-10-02] VITALS: BP 125/81; PULSE 92; RESP 22; TEMP 36.7; O2SAT 94
[2022-10-02] MEDS: HYDROcodone-acetaminophen 5-325 mg Tablet 1 TAB PO ×3 (01:03→19:26)
[2022-10-02 02:53] LABS: Blood Urea Nitrogen 22 mg/dL (8-23); Calcium 9.3 mg/dL (8.5-10.5); Carbon Dioxide 25 mmol/L (22-29); Chloride 101 mmol/L (98-107); Glomerular Filtration Rate 112.5 mL/min (90-130); Glucose 88 mg/dL (65-115); Osmolality Calculated 285 mOsm/kg (285-295); Sodium 136 mmol/L (136-145)
[2022-10-02 03:27] VITALS: BP 123/68; PULSE 77; RESP 18; TEMP 36.7; O2SAT 96
[2022-10-02 08:00] VITALS: BP 132/72; PULSE 87; RESP 15; TEMP 36.4; O2SAT 96
--- NOTE | 2022-10-02 08:18 | PC.SOCIAL ---
IMM not updated as patient is in obs.
[2022-10-02] MEDS: thiamine 100 mg Tablet PO (09:50)
[2022-10-02] MEDS: ibuprofen 600 mg Tablet PO ×3 (09:50→21:35)
[2022-10-02] MEDS: multivitamin therapeutic Tablet 1 TAB PO (09:50)
[2022-10-02] MEDS: atorvastatin 40 mg Tablet PO (09:50)
[2022-10-02] MEDS: folic acid 1 mg Tablet PO (09:50)
[2022-10-02] MEDS: aspirin 81 mg EC Tablet PO (09:50)
[2022-10-02] MEDS: FUROsemide 20 mg Tablet PO (09:51)
[2022-10-02] MEDS: lidocaine 5% Patch 1 PATCH TOPICAL ×2 (09:51→21:35)
[2022-10-02 11:59] VITALS: BP 117/68; PULSE 67; RESP 15; TEMP 36.6; O2SAT 98
[2022-10-02 15:40] VITALS: BP 139/80; PULSE 82; RESP 15; TEMP 36.8; O2SAT 96
--- NOTE | 2022-10-02 17:10 | P.PN_ITS ---
Subjective Subjective: Hospital course, labs appreciated. Patient lying comfortably in bed. Denies any nausea, vomiting, headache. States feeling a lot better. Has concerns regarding rheumatoid arthritis and treatment as an outpatient. Discussed in detail that he will need to follow-up with dyehouse worker as an out patient with whom we will try to make an appointment prior to discharge. Patient wants to discuss care with his niece. Vitals/I&O/Wt Last Vital Signs Temp 98.2 F 10/02/22 15:40 Pulse 82 10/02/22 15:40 Resp 15 10/02/22 15:40 BP 139/80 10/02/22 15:40 Pulse Ox 96 10/02/22 15:40 O2 Del Method 10/02/22 15:40 10/02/22 10/02/22 10/02/22 06:59 14:59 22:59 Intake Total 780 / 1340 600 / 600 Output Total 900 / 2275 850 / 850 Balance -120 / -935 -250 / -250 Physical Exam Const: COMMON NORMALS: patient oriented x3 and alert GENERAL APPEARANCE: cooperative ORIENTATION/CONSCIOUSNESS: Yes awake HENMT: COMMON NORMALS: oropharynx normal Neck/C-Spine: COMMON NORMALS: no JVD Resp: COMMON NORMALS: normal respiratory effort and clear to auscultation bilaterally AUSCULTATION: clear to auscultation bilaterally Cardio: COMMON NORMALS: no JVD, regular rhythm, S1 normal heart sound present, S2 normal heart sound present and No murmurs present (Cardio) RHYTHM: regular rhythm HEART SOUNDS: S1 normal heart sound present and S2 normal heart sound present GI: COMMON NORMALS: Normal to inspection, nondistended, normoactive bowel sounds present, Soft to palpation and non-tender PALPATION: Yes Soft to palpation Extremity: COMMON NORMALS: no joint enlargement GENERAL: Yes edema (BL legs 3+ edema up to thighs) OTHER: Compression wraps on BL LE. Neuro: COMMON NORMALS: patient oriented x3 and moves all extremities SENSO RIUM/ORIENTATION: Yes alert OTHER: Weakness R side Skin: COMMON NORMALS: no rashes or lesions noted GENERAL SKIN EXAM: no rashes or lesions noted Data 09/27/22 14:24 10/02/22 01:57 A&P Assessment and plan (1) Unable to ambulate: Today with slight improvement in symptoms after initiation of NSAID. Continue short course of NSAIDs. Continue mobilization with therapy. Continue arrangements for SNF. Needs to follow-up with rheumatology soon as he may be set up with DMARD. BMP stable. We will continue to monitor every other day while patient is in hospital and weekly hour as an outpatient while he is on NSAIDs. Compression dressings for lower extremities helping with edema. Continue low-dose Lasix. Duplex without DVT. TTE obtained, appears to show normal ejection fraction, grade 1 diastolic dysfunction. Mild AVR. Mild TVR. Trace PVR. Normal TSH and magnesium. Arrangements for further rehabilitation after discharge. (2) Bilateral leg edema: TTE with normal EF, grade 1 diastolic dysfunction. He does not otherwise appear orthopneic, no JVD, does not appear to be in CHF. No DVT on duplex Suspect severe venous insufficiency, follow-up outpatient with reflux study, follow-up with vascular surgery. (3) Excessive consumption of ethanol: Monitor for withdrawal. Continue sixpack of beer per day. Discussed with him concerns of excessive alcohol consumption. Risks. Encouraged him to decrease consumption. Ativan per [facility] protocol for withdrawal. Thiamine, folic acid, vitamin. (4) Smoking: Continue to encourage cessation. Nicotine patch, nicotine lozenges. (5) RA (rheumatoid arthritis): He does have untreated RA, and discussed also with him and his niece that he would benefit from initiating treatment JALEN. He has been reluctant going to rheumatology as not believe that pills could fix his problem, and he was upset previously about not having his knee drained,, states he understands how that may have been wrong, and how currently his condition has progressed without chrissy tment. He states that he will follow-up with rheumatology in [place] as it is closer to his home. For now start NSAID course for symptomatic relief. Plan HTN: Cardiac diet. Monitor blood pressure. Lasix. History of CVA: Would benefit from aspirin, statin. Smoking cessation. Optimization of blood pressure. Discharge planning: Plan to discharge to SNF. Awaiting prior authorization. Will need follow-up with dyehouse worker as an outpatient at the earliest. Should also follow-up with PCP for regular health maintenance. Attestations Medical Necessity Statement*: Requires further hospitalization while safe discharge planning is sought in setting of severe rheumatoid arthritis leading to difficulty in ambulation, high risk of fall and readmissions Time Spent in Patient Care: less than 15 minutes Coding Level of Care Code Acute Early Childhood Associate for Chg Fwd Diagnoses Unable to ambulate R26.2 Bilateral leg edema R60.0 Excessive consumption of ethanol F10.10 Smoking F17.200 RA (rheumatoid arthritis) M06.9
[2022-10-02] MEDS: enoxaparin 40 mg/0.4 mL Syringe SUBCUT (17:49)
[2022-10-02 19:08] VITALS: BP 111/58; PULSE 85; RESP 14; TEMP 36.7; O2SAT 96
[2022-10-02] MEDS: nicotine 21 mg Patch 1 PATCH TRANSDERMA (21:35)
[2022-10-03] VITALS (7 sets, daily range): BP systolic 115–144; BP diastolic 57–79; PULSE 80–89; RESP 13–20; TEMP 36.4–37.2; O2SAT 94–98
[2022-10-03] MEDS: HYDROcodone-acetaminophen 5-325 mg Tablet 1 TAB PO ×3 (02:09→17:38)
[2022-10-03] MEDS: folic acid 1 mg Tablet PO (08:50)
[2022-10-03] MEDS: atorvastatin 40 mg Tablet PO (08:50)
[2022-10-03] MEDS: ibuprofen 600 mg Tablet PO ×3 (08:50→21:06)
[2022-10-03] MEDS: multivitamin therapeutic Tablet 1 TAB PO (08:50)
[2022-10-03] MEDS: aspirin 81 mg EC Tablet PO (08:51)
[2022-10-03] MEDS: FUROsemide 20 mg Tablet PO (08:51)
[2022-10-03] MEDS: thiamine 100 mg Tablet PO (08:51)
[2022-10-03] MEDS: lidocaine 5% Patch 1 PATCH TOPICAL ×2 (08:52→21:06)
--- NOTE | 2022-10-03 15:43 | PM.PN ---
Subjective Subjective: No acute events overnight. Patient has been sitting in chair during examination having his meal. Denies any new complaints. Patient has been declined by prior authorization for transfer to SNF. Discussed the plan for discharge with home health within next 24 hours and patient is agreeable. Working with physical therapy. Care also discussed with patient in detail. Vitals/I&O/Wt Last Vital Signs Temp 98.3 F 10/03/22 11:15 Pulse 89 10/03/22 11:15 Resp 18 10/03/22 11:15 BP 115/69 10/03/22 11:15 Pulse Ox 97 10/03/22 11:15 O2 Del Method 10/03/22 11:15 10/03/22 10/03/22 10/03/22 06:59 14:59 22:59 Intake Total 600 / 600 Output Total 1000 / 2950 650 / 650 Balance -1000 / -1630 -50 / -50 Physical Exam Const: COMMON NORMALS: patient oriented x3 and alert GENERAL APPEARANCE: cooperative ORIENTATION/CONSCIOUSNESS: Yes awake HENMT: COMMON NORMALS: oropharynx normal Neck/C-Spine: COMMON NORMALS: no JVD Resp: COMMON NORMALS: normal respiratory effort and clear to auscultation bilaterally AUSCULTATION: clear to auscultation bilaterally Cardio: COMMON NORMALS: no JVD, regular rhythm, S1 normal heart sound present, S2 normal heart sound present and No murmurs present (Cardio) RHYTHM: regular rhythm HEART SOUNDS: S1 normal heart sound present and S2 normal heart sound present GI: COMMON NORMALS: Normal to inspection, nondistended, normoactive bowel sounds present, Soft to palpation and non-tender PALPATION: Yes Soft to palpation Extremity: COMMON NORMALS: no joint enlargement GENERAL: Yes edema (BL legs 3+ edema up to thighs) OTHER: Compression wraps on BL LE. Neuro: COMMON NORMALS: patient oriented x3 and moves all extremities SENSORIUM/ORIENTATION: Yes alert OTHER: Weakness R side Skin: COMMON NORMALS: no rashes or lesions noted GENERAL SKIN EXAM: no rashes or lesions noted Data 09/27/22 14:24 10/02/22 01:57 A&P Assessment and plan (1) Unable to ambulate: Today with slight improvement in symptoms after initiation of NSAID. Continue short course of NSAIDs. Continue mobilization with therapy. Continue arrangements for SNF. Needs to follow-up with rheumatology soon as he may be set up with [facility]. BMP stable. We will continue to monitor every other day while patient is in hospital and weekly hour as an outpatient while he is on NSAIDs. Compression dressings for lower extremities helping with edema. Continue low-dose Lasix. Duplex without DVT. TTE obtained, appears to show normal ejection fraction, grade 1 diastolic dysfunction. Mild AVR. Mild TVR. Trace PVR. Normal TSH and magnesium. Arrangements for further rehabilitation after discharge. (2) Bilateral leg edema: TTE with normal EF, grade 1 diastolic dysfunction. He does not otherwise appear orthopneic, no JVD, does not appear to be in CHF. No DVT on duplex Suspect severe venous insufficiency, follow-up outpatient with reflux study, follow-up with vascular surgery. (3) Excessive consumption of ethanol: Monitor for withdrawal. Continue sixpack of beer per day. Discussed with him concerns of excessive alcohol consumption. Risks. Encouraged him to decrease consumption. Ativan per [facility] protocol for withdrawal. Thiamine, folic acid, vitamin. (4) Smoking: Continue to encourage cessation. Nicotine patch, nicotine lozenges. (5) RA (rheumatoid arthritis): He does have untreated RA, and discussed also with him and his niece that he would benefit from initiating treatment JALEN. He has been reluctant going to rheumatology as not believe that pills could fix his problem, and he was upset previously about not having his knee drained,, states he understands how that may have been wrong, and how currently his condition has progressed without treatment. He states that he will follow-up with rheumatology in [place] as it is closer to his home. For now start NSAID course for symptomatic relief. Plan HTN: Cardiac diet. Monitor blood pressure. Lasix. History of CVA: Would benefit from aspirin, statin. Smoking cessation. Optimization of blood pressure. Discharge planning: Plan for discharge to home with home health. Will need an outpatient follow-up with [employer] unified communications engineer and orthopedics. Attestations Medical Necessity Statement*: Requires further hospitalization likely discharge planning is sought Time Spent in Patient Care: 16 - 35 minutes Coding Level of Care Code Acute Infrastructure Design Engineer for Chg Fwd Diagnoses Unable to ambulate R26.2 Bilateral leg edema R60.0 Excessive consumption of ethanol F10.10 Smoking F17.200 RA (rheumatoid arthritis) M06.9
[2022-10-03] MEDS: enoxaparin 40 mg/0.4 mL Syringe SUBCUT (17:38)
[2022-10-03] MEDS: nicotine 21 mg Patch 1 PATCH TRANSDERMA (21:06)
[2022-10-04 03:54] VITALS: BP 149/69; PULSE 62; RESP 20; TEMP 36.6; O2SAT 98
[2022-10-04] MEDS: HYDROcodone-acetaminophen 5-325 mg Tablet 1 TAB PO ×2 (03:55→09:05)
[2022-10-04 08:53] VITALS: BP 143/79
[2022-10-04] MEDS: FUROsemide 20 mg Tablet PO (08:59)
[2022-10-04] MEDS: folic acid 1 mg Tablet PO (08:59)
[2022-10-04] MEDS: multivitamin therapeutic Tablet 1 TAB PO (08:59)
[2022-10-04] MEDS: ibuprofen 600 mg Tablet PO (08:59)
[2022-10-04] MEDS: aspirin 81 mg EC Tablet PO (08:59)
[2022-10-04] MEDS: atorvastatin 40 mg Tablet PO (08:59)
[2022-10-04] MEDS: thiamine 100 mg Tablet PO (08:59)
[2022-10-04] MEDS: lidocaine 5% Patch 1 PATCH TOPICAL (09:00)
[2022-10-04 10:00] VITALS: BP 143/79
--- NOTE | 2022-10-04 10:20 | PC.SOCIAL ---
IMM not updated as patient is in OBS.
[2022-10-04 11:34] VITALS: BP 105/65; PULSE 89; RESP 18; O2SAT 95
--- NOTE | 2022-10-04 15:34 | PM.DCS ---
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 He states that he will actually get upset and did not return for any additional treatments.? In the past he was also on Rinvoq which she states was discontinued after his insurance declined payment for it.? He has not been on any additional treatments.? A month ago states that fluid was withdrawn from his left knee by orthopedic nurse practitioner.? He states that over the last several months his condition has declined in terms of mobility.? Previously used to be able to get around sometimes using crutches.? He tells me he has a very bad hip on the right side and that he had previously seen someone with consideration of hip replacement at 1 point states still anticipates that he will get hip replacement.? 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 Over the last week and a half his condition had continued to decline, and he states has also been having progressively worse bilateral lower extremity edema.? This reportedly had been previously imaged not found to have DVT.? He states that currently he is to the point that he is unable to get up by himself.? He is to also get some assistance from a nephew who was coming to his house, however, his nephew recently had some health issues and the surgical procedure and currently needs help himself. He states otherwise he also gets easily dyspneic with exertion which is not new.? He is not sure whether he gets orthopnea as he is unable to lie down due to pain in his back.? He denies any chest pain or pressure.? He has not been having any cough.? He is not short of breath at rest. In ER he is afebrile, heart rate in the 90s.? No leukocytosis.? Mildly elevated platelet counts and RDW, otherwise unremarkable CBC.? Unremarkable CMP and urinalysis.? Troponin not elevated.? NT proBNP 69.? Unremarkable EKG although noted Q waves inferiorly. He is accompanied in ER by his niece. In terms of CODE STATUS, he would be okay for intubation in case of isolated respiratory failure or arrest on transient basis, but in case of cardiopulmonary arrest he would rather be kept comfortable and let go if it did happen.? Hospital Course Hospital Course Patient admitted to hospital further evaluation and management. On admission there was a concern for patient being unable to ambulate secondary to bilateral leg edema which is treated by diuretic therapy along with physical therapy and regularly wraps. Echocardiogram was done which showed grade 1 diastolic dysfunction along with mild AVR and TVR. It is believed his symptoms are most likely secondary to advanced rheumatoid arthritis for which he was started on ibuprofen. Given difficulty in ambulation, patient living by himself and physical therapy recommendation discharge to SNF was sought after patient was agreeable. Unfortunately patient could not get authorization for transfer to SNF even after multiple tries. Safe discharge planning was discussed in detail with family again. They were agreeable for discharge to home with home health and regular family checkups with family members. Patient is been discharged in medically stable condition with advised to follow-up with rheumatology clinic at the earliest. He has been discharged on oral ibuprofen for next 10 days. Discharge plan discussed in detail with patient and patient's family. Physical Exam Narrative: General: No acute distress, AO x3 HEENT: PERRLA, pupils bilaterally equal and reactive Chest: Normal vesicular breath sounds, no added sounds, equal good air entry bilaterally CVS: S1-S2 regular, no murmurs, no tachycardia, no gallops, no rubs Abdomen: Soft, nontender, no organomegaly, bowel sounds present Neuro: No focal deficits, no facial deformity, AO x3, power 5/5 in all limbs Discharge Data Studies Completed and Pending Completed Studies During Hospitalization Category Date [place] [id number] Routine Ultrasound 09/27/22 18:47 Completed CV. echo complete* [id number] Routine Ultrasound 09/27/22 18:47 Completed Radiology Impressions Venous Duplex 09/27/22 18:47 IMPRESSION: No evidence of deep vein thrombosis. Echocardiogram CONCLUSIONS ?LV systolic function is normal with EF 55 to 60%. ?Grade 1 diastolic dysfunction ?Moderate mitral annular calcification is seen. ?Mild aortic regurgitation ?Mild tricuspid regurgitation ?Trace pulmonic regurgitation ?No comparison studies are available ?Alberto Bacon MD ?(Electronically Signed) ?Final Date:? 28 September 2022 ? Laboratory Results WBC 8.3 10^3/uL (4.0-10.0) 09/27/22 14:24 RBC 4.70 10^6/uL (4.1-5.3) 09/27/22 14:24 Hgb 12.8 g/dL (11.7-16.6) 09/27/22 14:24 Hct 40.5 % (42.0-52.0) L 09/27/22 14:24 MCV 86.2 fl (80-94) 09/27/22 14:24 MCH 27.2 pg (28.0-34.0) L 09/27/22 14:24 MCHC 31.6 g/dL (30.0-36.0) 09/27/22 14:24 RDW 16.0 % (12.1-15.1) H 09/27/22 14:24 Plt Count 503 10^3/cmm (130-400) H 09/27/22 14:24 MPV 9.5 fL (7.4-10.4) 09/27/22 14:24 Neut % (Auto) 74.1 % 09/27/22 14:24 Lymph % (Auto) 16.1 % 09/27/22 14:24 [place] % (Auto) 6.6 % 09/27/22 14:24 Eos % (Auto) 1.6 % 09/27/22 14:24 Baso % (Auto) 0.5 % 09/27/22 14:24 Neut # (Auto) 6.18 10^3/uL (1.8-7.7) 09/27/22 14:24 Lymph # (Auto) 1.3 10^3/uL (0.8-4.8) 09/27/22 14:24 [place] # (Auto) 0.6 10^3/uL (0.2-0.9) 09/27/22 14:24 Eos # (Auto) 0.1 10^3/uL (0.0-0.8) 09/27/22 14:24 Baso # (Auto) 0.0 10^3/uL (0.0-0.1) 09/27/22 14:24 Nucleated RBC % (auto) 0 % 09/27/22 14:24 Nucleated RBCs # 0.0 /100WBC 09/27/22 14:24 Sodium 136 mmol/L (136-145) 10/02/22 01:57 Potassium 4.0 mmol/L (3.5-5.1) 10/02/22 01:57 Chloride 101 mmol/L (98-107) 10/02/22 01:57 Carbon Dioxide 25 mmol/L (22-29) 10/02/22 01:57 Anion Gap 14.0 (5-19) 10/02/22 01:57 BUN 22 mg/dL (8-23) 10/02/22 01:57 Creatinine 0.7 mg/dL (0.7-1.2) 10/02/22 01:57 GFR Calculation 112.5 mL/min (90-130) 10/02/22 01:57 Glucose 88 mg/dL (65-115) 10/02/22 01:57 Calculated Osmolality 285 mOsm/kg (285-295) 10/02/22 01:57 Calcium 9.3 mg/dL (8.5-10.5) 10/02/22 01:57 Magnesium 1.9 mg/dL (1.7-2.3) 09/27/22 20:24 Total Bilirubin 0.3 mg/dL (0.15-1.2) 09/27/22 14:24 AST 18 U/L (0-40) 09/27/22 14:24 ALT 15 U/L (0-41) 09/27/22 14:24 Alkaline Phosphatase 114 U/L (40-130) 09/27/22 14:24 Troponin T Baseline 11 ng/L (0-15) 09/27/22 14:24 Troponin T 120 Minute 11.33 ng/L (0-15) 09/27/22 16:28 Delta Troponin T 0.33 ABS# (0-10) 09/27/22 16:28 Troponin T Hi Sens 6Hr 14.46 ng/L (0-15) 09/27/22 20:24 Troponin T Hi Sens 6Hr Delta 3.46 ng/L (0-12) 09/27/22 20:24 NT-Pro-B Natriuret Pep 69 pg/mL (0-125) 09/27/22 14:24 Total Protein 7.8 g/dL (6.6-8.7) 09/27/22 14:24 Albumin 3.5 g/dL (3.5-5.2) 09/27/22 14:24 Globulin 4.3 g/dL (1.3-4.6) 09/27/22 14:24 TSH 2.56 uIU/mL (0.27-4.20) 09/27/22 20:24 Urine Color Yellow (Yellow) 09/27/22 13:20 Urine Appearance Clear (CLEAR) 09/27/22 13:20 Urine pH 8 (5-7) H 09/27/22 13:20 Ur Specific [place] 1.015 (1.005-1.030) 09/27/22 13:20 Urine Protein Neg (Negative) 09/27/22 13:20 Urine Glucose (UA) Norm (Normal) 09/27/22 13:20 Urine Ketones Negative (Negative) 09/27/22 13:20 Urine Blood Neg (Negative) 09/27/22 13:20 Urine Nitrate Negative (Negative) 09/27/22 13:20 Urine Bilirubin Neg (Negative) 09/27/22 13:20 Prot Sulfosalicylic Acd Negative (Negative) 09/27/22 13:20 Urine Urobilinogen Neg mg/dL (Negative) 09/27/22 13:20 Ur Leukocyte Esterase Negative (Negative) 09/27/22 13:20 Vitals Last Vital Signs Temp 97.9 F 10/04/22 03:54 Pulse 89 10/04/22 11:34 Resp 18 10/04/22 11:34 BP 105/65 10/04/22 11:34 Pulse Ox 95 10/04/22 11:34 O2 Del Method 10/04/22 03:54 Discharge Plan Discharge Patient Disposition: Home Health Service Condition: Stable Prescriptions: New aspirin 81 mg Tablet,Delayed Release (Dr/Ec) 81 mg PO DAILY Qty: 30 0RF ibuprofen 600 mg Tablet 600 mg PO TID 10 Days Qty: 30 0RF Thera 400 mcg Tablet 1 tab PO DAILY Qty: 30 0RF hydrocodone-acetaminophen 5-325 mg tablet 1 tab PO DAILY PRN (Reason: pain) Qty: 5 0RF Continued furosemide 20 mg tablet 20 mg PO DAILY Discharge Orders: Discharge Order (Routine); Ordered 10/04/22 Ordered By: Nehemiah Delarosa Other Ambulatory Orders: DME: Walker (Order) Location: None Selected Ordered By: Nehemiah Delarosa Referrals: [facility] [Other] Rheumatology [Provider Group] - 11/15/22 11:40 am [facility] [place] [facility] [place] Liliane Laughlin MD [Referring] - 10/13/22 10:00 am (APPOINTMENT WITH ALEX MIRANDA AT [facility]) Discharge Diet: Regular Discharge Activity: Resume usual activity and Increase activity as tolerated Patient Instructions: Ibuprofen (By mouth), Aspirin (By mouth), Edema (GEN), Opioid Safety Activity Restrictions/Additional Instructions: Please follow-up with a primary care provider in the next 1 week. We will try to make an appointment for you to see a special events director and orthopedics at the earliest. Continue taking ibuprofen 600 mg 3 times a day for next 10 days. Further treatment for rheumatoid arthritis will be as per special events director. Discharge Attestations Time Spent in Discharge Care*: greater than 30 min Specific Discharge Activities: educating patient, educating and/or supporting family/caregiver, discussing with case resource manager/social workers/dc planners, documenting/other paperwork and evaluating patient/reviewing data Status at Discharge: Cognitive status at discharge: cognitively intact, Behavioral status at discharge: cooperative, Functional status at discharge: uses cane/walker, Overall status at discharge: patient is back to baseline Quality Metrics Clinical Quality Measures [ No reported AMI, CVA or VTE this stay] Coding Level of Care Code Acute Chg FW DC note Diagnoses Unable to ambulate R26.2 Bilateral leg edema R60.0 Excessive consumption of ethanol F10.10 Smoking F17.200 RA (rheumatoid arthritis) M06.9
== END 2022-10-04 13:27 | disposition home health service (06) ==
LOC: ER 17:20 → MEDSURG 18:33
PROVIDERS: Family Medicine; Admitting Provider Internal Medicine; Emergency Provider Family Medicine; Visit Provider Student in an Organized Health Care Education/Training Program
DX: R26.2 Difficulty in walking, not elsewhere classified (principal); R60.0 Localized edema; F10.10 Alcohol abuse, uncomplicated; F17.210 Nicotine dependence, cigarettes, uncomplicated; M06.9 Rheumatoid arthritis, unspecified; M16.11 Unilateral primary osteoarthritis, right hip; I10 Essential (primary) hypertension; Z86.73 Personal history of transient ischemic attack (TIA), and cerebral infarction without residual deficits
CPT/HCPCS: 29581; 36415; 80048; 80053; 81003; 83735; 83880; 84443; 84484; 85025; 93005; 93306; 93970; 96372; 97110; 97116; 97162; 97166; 97530; 97535; G0378; J1650; J1940; J2405; J3411